=== PATIENT | male | born 1965 | race Caucasian/White ===

== ENCOUNTER → 2024-09-21 15:50 | Outpatient (CLI) | payer OTHER, SELFPAY | PROVIDERS: PCP Family Medicine; Visit Provider Urology | DX: R35.1 Nocturia (principal); N40.1 Benign prostatic hyperplasia with lower urinary tract symptoms | CPT/HCPCS: 51798; 87086; 99213 ==

== ENCOUNTER → 2024-11-24 19:01 | Outpatient (CLI) | payer OTHER, SELFPAY ==
--- NOTE | 2024-11-24 19:02 | DI.MRI.S_ITS ---
PROCEDURE: MR FOOT RT WO CON INDICATIONS: PAIN IN RT FOOT TECHNIQUE: Multiphasic, multisequence MRI of the forefoot was performed, without intravenous contrast administration. 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 FINDINGS: Image quality: Excellent. Bones and joints: Alignment of midfoot and forefoot is anatomic. Zueq-xn-almbxhtu midfoot and forefoot joint osteoarthritic changes are seen most notably involving 1st MTP joint and 1st interphalangeal joint with significant joint space narrowing, subchondral sclerosis and prominent dorsal marginal osteophyte formation. Mild marrow edema is seen involving 1st metatarsal head and adjacent 1st metatarsal base without discrete fracture line. Marrow edema is also seen involving lateral sesamoid bone of 1st metatarsal head without discrete fracture line. Mild marrow edema is noted involving 4th proximal metatarsal shaft with very subtle cortical irregularity at the area of edema concerning for incomplete stress fracture versus stress related changes. No other area of abnormal marrow signal is seen. No displaced fracture or dislocation. Soft tissues: The visualized plantar foot muscles demonstrate normal signal and bulk. Visualized flexor and extensor tendons appear intact, without tenosynovitis. The distal insertions of the peroneus brevis and longus tendons appear intact. Low-grade sprain involving principal Lisfranc ligament is seen. No soft tissue ganglion cysts or bursal fluid collections. Sagittal images demonstrate no definite plantar plate tear in 2nd through 5th toes. There is signal abnormality involving lateral sesamoid phalangeal ligament of 1st MTP joint near its sesamoidal insertion. IMPRESSION: 1. Almp-rr-rlriwsyh midfoot and forefoot joint osteoarthritis most notably involving 1st MTP joint with features concerning for hallux limitus. 2. Edema within lateral sesamoid bone of 1st mem TP joint concerning for sesamoiditis. Suggestion of low-grade partial-thickness tear involving lateral sesamoid phalangeal ligament of 1st MTP joint and may represent low-grade turf toe injury. 3. Marrow edema also seen involving proximal shaft of 4th metatarsal bone without discrete fracture line concerning for stress related changes. Incomplete stress fracture cannot be entirely excluded. Clinical correlation and follow-up is recommended. 4. Suggestion of low-grade sprain involving principal Lisfranc ligament. No full-thickness ligament rupture. 5. Extensor and flexor tendons are intact. Dictated by: Kevyn Dave M.D. on 11/25/2024 at 10:22 Approved by: Kevyn Dave M.D. on 11/25/2024 at 10:36
== END ==
PROVIDERS: PCP Family Medicine; Referring Provider Podiatrist; Visit Provider Podiatrist
DX: M19.071 Primary osteoarthritis, right ankle and foot (principal); M79.671 Pain in right foot; R60.0 Localized edema
CPT/HCPCS: 73718

== ENCOUNTER 2024-11-26 01:37 | Emergency (ER) | payer OTHER, SELFPAY ==
[2024-11-26] VITALS (7 sets, daily range): BP systolic 154–181; BP diastolic 113–125; PULSE 64–71; RESP 14–18; TEMP 36.3; O2SAT 93–95; BMI 34.0
--- NOTE | 2024-11-26 01:55 | EKG_ITS ---
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
--- NOTE | 2024-11-26 02:14 | DI.RAD.S_ITS ---
PROCEDURE: XR CHEST 1V INDICATIONS: chest pain TECHNIQUE: One view of the chest was acquired. COMPARISON: None. FINDINGS: Surgical changes and devices: None. Lungs and pleura: Lungs are clear. No pleural effusions or pneumothorax. Mediastinum: Mediastinal contours appear normal. Heart size is normal. Bones and chest wall: No suspicious bony lesions. Overlying soft tissues appear unremarkable. IMPRESSION: No acute cardiopulmonary abnormality is seen. Findings are concordant with preliminary interpretation provided by [facility]. Dictated by: Elan Chowdhury M.D. on 11/26/2024 at 9:38 Approved by: Elan Chowdhury M.D. on 11/26/2024 at 9:38
[2024-11-26 02:22] LABS: Add Manual Diff / Slide Review NO; Basophils Absolute Auto 0 /uL (0-100); Basophils Percent Auto 0.7 % (0-2); Eosinophils Absolute Auto 100 /uL (0-450); Hematocrit 55.9 % (41-53); Hemoglobin 18.6 g/dL (13.5-17.5); Lymphocytes Absolute Auto 1400 /uL (1100-4500); Lymphocytes Percent Auto 23.7 % (25-40); Mean Corpuscular HGB Conc 33.3 % (30-36); Mean Corpuscular Hemoglobin 27.9 PG (26-34); Mean Corpuscular Volume 83.8 fL (80-100); Monocytes Absolute Auto 500 /uL (0-900); Monocytes Percent Auto 7.9 % (3-14); Neutrophils Absolute Auto 3900 /uL (1500-7000); Neutrophils Percent Auto 65.7 % (50-75); Platelet Count 182 X10^3/uL (150-400); Red Blood Cell Count 6.67 X10^6/uL (4.5-5.9); Red Cell Distribution Width 14.3 % (11.6-14.8)
[2024-11-26 02:29] LABS: INR 1.1 (0.9-1.3); Prothrombin Time 12.3 SECONDS (9.4-12.5)
[2024-11-26 02:32] LABS: PTT Partial Thromboplastin Tim 43 SECONDS (25.1-36.5)
[2024-11-26 02:33] LABS: Alanine Aminotransferase 68 IU/L (<50); Albumin 4.8 g/dL (3.5-5.0); Albumin Globulin Ratio 1.5 (1.0-2.8); Alkaline Phosphatase 65 U/L (38-126); Aspartate Aminotransferase 42 IU/L (17-59); BUN Creatinine Ratio 19.5 (6-22); Bilirubin Total 1.1 mg/dL (0.2-1.3); Blood Urea Nitrogen 23 mg/dL (9-20); Calcium 9.3 mg/dL (8.4-10.2); Carbon Dioxide 23 mmol/L (22-32); Chloride 102 mmol/L (98-107); Creatine Kinase 104 U/L (55-170); Estimated Glomerular Filt Rate > 60 mL/min (>60); Globulin 3.3 g/dL (1.7-4.1); Glucose 92 mg/dL (70-100); HEMOLYSIS < 15 (0-50); Lipase 62 U/L (23-300); Magnesium 1.9 mg/dL (1.6-2.3); Potassium 3.6 mmol/L (3.4-5.1); Sodium 137 mmol/L (137-145); Total Protein 8.1 g/dL (6.3-8.2)
--- NOTE | 2024-11-26 02:39 | ED.GENADULT ---
HPI - General Adult General Chief complaint: Hypertension Stated complaint: High blood pressure Time Seen by Provider: 11/26/24 02:39 Source: patient, RN notes reviewed and old records reviewed Mode of arrival: Ambulatory Limitations: no limitations History of Present Illness HPI narrative: 59-year-old male with hypertension was on losartan until month or 2 ago medications were stopped mucous patient was trying to be more natural in his diet and was getting low blood pressure with his losartan and tamsulosin in conjunction. Patient recently had his losartan restarted in has been taking 50 mg a day but notes his blood pressure has been elevated recently tonight has a little bit of sinus pressure checked his blood pressure and noted he was 180s/110s. Patient denies any active chest pain, no shortness of breath, no nausea or vomiting, no other GI or urinary symptoms. No new swelling in extremities. Patient has a fall medications currently. Did take 100 mg of losartan earlier. Patient also took additional hydrochlorothiazide this evening but does not take that normally. Denies any drug allergies. No tobacco. Related Data Previous Rx's Medication Instructions Recorded trazodone 50 mg tablet 50 mg PO BEDTIME PRN insomnia #30 10/28/24 tabs semaglutide 2 mg/dose (8 mg/3 mL) 2 mg (0.75 mL) SUBCUT QWEEK #3 mL 11/17/24 subcutaneous pen injector losartan 50 mg tablet 50 mg PO DAILY #30 tabs 11/25/24 Allergies Allergy/AdvReac Type Severity Reaction Status Date / Time No Known Drug Allergies Allergy Unverified 11/12/24 08:10 Review of Systems Review of Systems ROS Unobtainable: All systems reviewed & are unremarkable except as noted in HPI and below Patient History Surgical History Raymond teeth removed (08/25/04) Hx of hernia repair Family History Mother Hyperlipidemia Father Hyperlipidemia Social History marital status: number of children: 4 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 RESPIRATORY: Breath sounds equal bilaterally, no wheezes rales or rhonchi. ABDOMEN: Soft, nontender. Normoactive bowel sounds all 4 quadrants. No guarding or rebound, rigidity, no mass : No CVA tenderness EXTREMITIES: Normal range of motion, no edema. Neurovascularly intact NEUROLOGICAL: Cranial nerves II through XII grossly intact. Moving all extremities SKIN: Warm, dry, no petechiae, no rashes or lesions. Initial Vital Signs Initial Vital Signs: Vital Signs Temperature 97.4 F L 11/26/24 01:40 Pulse Rate 67 11/26/24 01:40 Respiratory Rate 16 11/26/24 01:40 Blood Pressure 181/125 H 11/26/24 01:40 Pulse Oximetry 95 11/26/24 01:40 Oxygen Delivery Method Room Air 11/26/24 01:40 Course Orders Ordered: ED Orders 11/26/24 01:47 EKG-12 Lead Stat 11/26/24 02:14 XR chest 1V Stat Complete Blood Count AUTO DIFF Stat Comprehensive Metabolic Panel Stat Lipase Stat Magnesium Stat NT-proBNP (BNP-Adult 18+) Stat PTT Partial Thromboplastin Pio Stat Prothrombin Time INR Stat Troponin & CK Cardiac Panel Stat EKG-12 Lead Stat Discontinued Medications Acetaminophen (Acetaminophen 325 Mg Tablet) 975 mg PO NOW ONE Stop: 11/26/24 02:57 Last Admin: 11/26/24 03:05 Dose: 975 mg Documented By: AMANDO Amlodipine Besylate (Amlodipine 5 Mg Tablet) 5 mg PO NOW ONE Stop: 11/26/24 02:57 Last Admin: 11/26/24 03:05 Dose: 5 mg Documented By: AMANDO Aspirin (Aspirin 81 Mg Chew Tab) 324 mg PO NOW ONE Stop: 11/26/24 02:15 Vital Signs Vital signs: Vital Signs - 8 hr 11/26/24 01:40 11/26/24 02:13 11/26/24 02:13 Temperature 97.4 F L Pulse Rate 67 70 Respiratory Rate 16 14 Blood Pressure 181/125 H 154/114 H Pulse Oximetry 95 95 Oxygen Delivery Method Room Air Room Air 11/26/24 02:30 11/26/24 02:32 11/26/24 02:32 Temperature Pulse Rate 70 71 Respiratory Rate 18 18 Blood Pressure 173/113 H Pulse Oximetry 94 95 Oxygen Delivery Method Room Air Room Air 11/26/24 03:00 11/26/24 03:00 11/26/24 03:11 Temperature Pulse Rate 64 68 Respiratory Rate 18 18 Blood Pressure 163/116 H Pulse Oximetry 95 93 Oxygen Delivery Method Room Air Room Air 11/26/24 03:20 Temperature Pulse Rate Respiratory Rate Blood Pressure 171/119 H Pulse Oximetry Oxygen Delivery Method Medical Decision Making Lab Data 11/26/24 02:14 11/26/24 02:14 Labs: Lab Results 11/26/24 Range/Units 02:14 WBC 6.0 (4.5-11.0) X10^3/uL RBC 6.67 H (4.5-5.9) X10^6/uL Hgb 18.6 H (13.5-17.5) g/dL Hct 55.9 H (41-53) % MCV 83.8 (80-100) fL MCH 27.9 (26-34) PG MCHC 33.3 (30-36) % RDW 14.3 (11.6-14.8) % Plt Count 182 (150-400) X10^3/uL Neut % (Auto) 65.7 (50-75) % Lymph % (Auto) 23.7 L (25-40) % [place] % (Auto) 7.9 (3-14) % Eos % (Auto) 2.0 (2-4) % Baso % (Auto) 0.7 (0-2) % Neut # (Auto) 3900 (6348-9976) /uL Lymph # (Auto) 1400 (8938-4370) /uL [place] # (Auto) 500 (0-900) /uL Eos # (Auto) 100 (0-450) /uL Baso # (Auto) 0 (0-100) /uL PT 12.3 (9.4-12.5) SECONDS INR 1.1 (0.9-1.3) APTT 43 H (25.1-36.5) SECONDS Sodium 137 (137-145) mmol/L Potassium 3.6 (3.4-5.1) mmol/L Chloride 102 (98-107) mmol/L Carbon Dioxide 23 (22-32) mmol/L BUN 23 H (9-20) mg/dL Creatinine 1.18 (0.66-1.25) mg/dL Estimated GFR > 60 (>60) mL/min BUN/Creatinine Ratio 19.5 (6-22) Glucose 92 (70-100) mg/dL Calcium 9.3 (8.4-10.2) mg/dL Magnesium 1.9 (1.6-2.3) mg/dL Total Bilirubin 1.1 (0.2-1.3) mg/dL AST 42 (17-59) IU/L ALT 68 H (<50) IU/L Alkaline Phosphatase 65 (38-126) U/L Total Creatine Kinase 104 (55-170) U/L Troponin I < 0.012 (0.01-0.034) ng/mL NT-Pro-B Natriuret Pep < 20 (<125) pg/mL Total Protein 8.1 (6.3-8.2) g/dL Albumin 4.8 (3.5-5.0) g/dL Globulin 3.3 (1.7-4.1) g/dL Albumin/Globulin Ratio 1.5 (1.0-2.8) Lipase 62 (23-300) U/L ECG Data Attestation: I personally reviewed and interpreted this ECG as follows: Prior ECG tracings: not available for review Interpretation: Normal sinus rhythm rate a 68, IA 188 QRS of 90 QTC of 438, no acute ST changes. No priors MDM Narrative Medical decision making narrative: Labs show white count of 6 hemoglobin of 18.6 platelets of 182. INR is 1.1 BUN 23 electrolytes are otherwise appropriate creatinine is 1.18 AST is 68, LFTs are otherwise appropriate. Troponin less than 0.012. BNP less than 20 EKG shows sinus rhythm no priors for comparison. Chest x-ray shows no acute change Discussed with patient we will give low dose of amlodipine here in the department. Patient has a follow-up in the next 12 hours with primary care. Discussed with the patient primary care may choose an alternative agent for long-term blood pressure control. Workup does not show any end-organ damage no active chest pain or shortness of breath patient is felt appropriate for discharge home. Discharge Plan Departure Patient Disposition: Home Clinical Impression: Hypertension Activity Restrictions/Additional Instructions: Follow up with Dr. Balbuena to your appointment later today. Talk with your physician about how to adjust your medications. Please return for new or worsening symptoms. Prescriptions: No Action trazodone 50 mg tablet 50 mg PO BEDTIME PRN (Reason: insomnia) Qty: 30 2RF semaglutide 2 mg/dose (8 mg/3 mL) pen injector 2 mg SUBCUT QWEEK Qty: 3 5RF Rx Instructions: Semaglutide/cyanocobalamine inject subq 2mg/0.5mg per ml weekly losartan 50 mg tablet 50 mg PO DAILY Qty: 30 2RF Rx Instructions: Take 1/2 tab daily for 1 week then increase to 1 tab daily Referrals: Dexter Balbuena MD [Primary Care Provider] - Stand Alone Forms: Patient Portal/API/Survey
[2024-11-26 02:45] LABS: NT-proBNP (BNP-Adult 18+) < 20 pg/mL (<125); Troponin I < 0.012 ng/mL (0.01-0.034)
[2024-11-26] MEDS: AMLODIPINE 5 MG TABLET PO (03:05)
[2024-11-26] MEDS: ACETAMINOPHEN 325 MG TABLET 975 MG PO (03:05)
== END 2024-11-26 03:25 | disposition home or self-care (01) ==
PROVIDERS: Emergency Provider Emergency Medicine; PCP Family Medicine
DX: I10 Essential (primary) hypertension (principal)
CPT/HCPCS: 36415; 71045; 80053; 82550; 83690; 83735; 83880; 84484; 85025; 85610; 85730; 93005; 99284

== ENCOUNTER → 2024-12-01 19:52 | Outpatient (CLI) | payer OTHER, SELFPAY ==
--- NOTE | 2024-12-01 19:55 | DI.RAD.S_ITS ---
PROCEDURE: XR HIP W PEL IF DONE ELADIO MIN 4V INDICATIONS: FA Pain/ Bursitis TECHNIQUE: AP pelvis with lateral view(s) of the both hip(s). COMPARISON: None. FINDINGS: Bones: There are no osseous abnormalities. SI and hip joints: Mild degeneration both SI and hip joints appreciated. Moderate L4-5 L5-S1 degenerative disc disease. Soft tissues: There is an 8 mm soft tissue calcification adjacent to the left greater trochanter. IMPRESSION: Mild degeneration Dictated by: Omar Dia M.D. on 12/02/2024 at 12:48 Approved by: Omar Dia M.D. on 12/02/2024 at 12:50
== END ==
PROVIDERS: PCP Family Medicine; Referring Provider Chiropractor; Visit Provider Chiropractor
DX: M16.0 Bilateral primary osteoarthritis of hip (principal); M51.369 Other intervertebral disc degeneration, lumbar region without mention of lumbar back pain or lower extremity pain; M51.379 Other intervertebral disc degeneration, lumbosacral region without mention of lumbar back pain or lower extremity pain; M25.559 Pain in unspecified hip
CPT/HCPCS: 73522

== ENCOUNTER → 2025-01-13 07:00 | Outpatient (CLI) | payer OTHER, SELFPAY ==
[2025-01-13 08:35] LABS: Prostate Specific Antigen 2.29 ng/mL (0.10-4.00)
[2025-01-13 08:37] LABS: Testosterone 250 ng/dL (71.8-623)
[2025-01-13 08:38] LABS: Estradiol, Total 24.4 pg/mL
== END ==
PROVIDERS: PCP Family Medicine; Referring Provider Urology; Visit Provider Urology
DX: R79.89 Other specified abnormal findings of blood chemistry (principal); R97.20 Elevated prostate specific antigen [PSA]
CPT/HCPCS: 36415; 82670; 84153; 84403; 85014

== ENCOUNTER → 2025-03-19 06:22 | Outpatient (CLI) | payer OTHER, SELFPAY ==
--- NOTE | 2025-03-19 | DI.MRI.S_ITS ---
PROCEDURE: MR HIP LT WO CON INDICATIONS: Right hip pain TECHNIQUE: Noncontrast coronal T1 spin echo and STIR through the bony pelvis. Coronal and axial T2 fast spin echo with fat saturation, sagittal T1 spin echo, and oblique axial T2 fast spin echo with fat saturation through the hip. COMPARISON: None. FINDINGS: Image quality: Excellent. Bones and joints: Periarticular osteophyte formation at the left hip joint. Bone marrow of the pelvic ring and proximal femurs show normal signal throughout. No intraosseous lesions or fractures. No avascular necrosis of the femoral heads. The visualized lower lumbar spine appears normally aligned. Tendons and ligaments: There is moderate grade tearing of the gluteus minimus tendon the femoral insertion site extending to the musculotendinous junction. Low-grade tearing of the gluteus medius tendon at the femoral insertion site. The nearby proximal iliotibial band also appears intact. The iliopsoas tendon appears intact, without adjacent bursal fluid collections or evidence for impingement syndrome. The origin of the hamstring tendon is intact at the ischial tuberosity, as well as the associated sacrotuberous ligament. The straight and reflected heads of the rectus femoris muscle origin appear intact, as well as the conjoint tendon. The ligamentum teres appears intact where visualized. Labrum and cartilage: There is diffuse undercutting of the left hip labrum. Mild left hip joint articular cartilage loss is present. The alpha angle of the femur is within normal limits at less than 55 degrees. Soft tissues: Visualized muscles demonstrate normal bulk and internal signal. Quadratus femoris muscle demonstrates no internal edema to suggest ischiofemoral impingement. The proximal sciatic neurovascular bundle appears normal adjacent to the hamstring tendons. No free pelvic fluid. Bladder wall thickness is normal. Prostate is enlarged measuring 64 mm transverse. IMPRESSION: 1. Partial-thickness tearing of the left gluteus medius and minimus tendons. 2. Left hip osteoarthritis associated with articular cartilage loss and labral tearing. 3. Prostate enlargement. Dictated by: Ortega Dyer M.D. on 03/21/2025 at 11:41 Approved by: Ortega Dyer M.D. on 03/21/2025 at 11:45
== END ==
LOC: MRI 06:22
PROVIDERS: Family Provider Family Medicine; PCP Family Medicine; Referring Provider Orthopaedic Surgery; Visit Provider Orthopaedic Surgery
DX: S76.012A Strain of muscle, fascia and tendon of left hip, initial encounter (principal); M16.12 Unilateral primary osteoarthritis, left hip; N40.0 Benign prostatic hyperplasia without lower urinary tract symptoms; M25.552 Pain in left hip
CPT/HCPCS: 73721

== ENCOUNTER 2025-06-21 07:30 | Outpatient (RCR) | payer OTHER, SELFPAY ==
--- NOTE | 2025-03-24 18:49 | PT.OPPOC ---
Addendum entered and electronically signed by Adelita Hernandez, PT 03/24/25 18:53: POC faxed Original Note: Physical, Occupational & Speech Therapy At [facility] Current Diagnoses Calcific tendinitis, left thigh (03/24/25) Trochanteric bursitis, left hip (03/24/25) Strain of muscle, fascia and tendon of left hip, initial encounter (03/24/25) Visit Care Team Role Provider Type Dexter Balbuena MD Family Provider Physician Primary Care Provider Specialty: Family Practice Obstetrics Address: [address] [place] [address], [id number] Email: [email or web address] Ene Kearns MD Attending Provider Physician Referring Provider Specialty: Orthopedics Orthopedic Surgery Address: [address] [place] [address], [address] Email: [email or web address] Plan Of Care PT OP: Lower Back/Extremity Start: 03/24/25 08:15 Freq: Status: Active Protocol: Document 03/24/25 17:05 [facility] (Rec: 03/24/25 18:49 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 Condition Okay if keeps moving, but can't lay on R side because feels it pulling and when on L side feels it down to ankle. When it first started, stopped going to the gym and that didn't help. Returned and did high reps and low weight and didn't help. He had a cortizone shot and it helped fo ra day. THat ngiht sore next day with gym , walks, bikes so now avoiding it some. 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 Lower left side of back is tight. Gets massages and goes to chiro. Feels better after chiro. 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 Aggravation: up/down stairs, sleep, working out. tore peroneal tendons and had to have surgery on L side a few years ago. Can feel like a numb burn down L side of leg. Treatment Goals Patient/Caregiver get back to working out (gym, hiking, biking), sleep Goals Patient Questionnaires Lower Extremity Functional Scale LEFS Score 62/80 OP Gait Assessment Comments Gait Comments Dec b hip ext, supination L ankle, dec push off L Posture Evaluation Gilbert Postural Classification System Gilbert Postural Posterior/Anterior Classifications Lumbar Protective 0 Mechanism Left AP Lumbar Protective 0 Mechanism Right AP Lumbar Protective 0 Mechanism Left PA Lumbar Protective 0 Mechanism Right PA Comments Posture Comments L iliac higher, equal greater trochanter height, R foot toes out>L, SB L, L trunk rotation , L IR femur, ER tibia Lumbar Spine Range of Motion Lumbar Spine Active Percentage Flexion 90 Extension 80 Rotation Left 70 Rotation Right 60 Lateral Flexion Left 80 Lateral Flexion 80 Right Special Tests Lumbar Spine Special Tests Bharathi Test Results R iliacus and tLF tightness; L quad SLR Test Results L 58 deg; R 83 deg Slump Test Results mild more tightness ext sit and slump L Hip Strength Hip Manual Muscle Testing Right Flexion (L2) 4- Good- Extension (S1) 4- Good- Abduction 4 Good Adduction 4 Good External Rotation 5 Normal Internal Rotation 5 Normal Left Flexion (L2) 3+ Fair+ Extension (S1) 4- Good- Abduction 3+ Fair+ Adduction 3+ Fair+ External Rotation 5 Normal Internal Rotation 4- Good- Comments pain post hip w/flex and IR Knee Strength Knee Manual Muscle Testing Right Flexion (S2) 5 Normal Extension (L3) 5 Normal Left Flexion (S2) 4 Good Extension (L3) 5 Normal Ankle/Foot Strength Ankle and Foot Manual Muscle Testing Right Dorsiflexion (L4) 5 Normal Left Dorsiflexion (L4) 5 Normal Therapeutic Exercises Standing Exercises stretch Standing Exercise 1. HS L 2. hip flexor w/knee on chair Name Manual Therapy Treatment Consent Patient gave verbal Yes consent for manual treatment Soft Tissue Mobilization ITB Body Location L cupping Comments w/IR/ER glutes Body Location L piriformis Intensity/Depth Moderate Body Position Prone Comments w/IR/ER Joint Mobilizations innominate Comments caudal L w/LTR and L IR c/r sacrum Joint caudal L LTR prone hip Joint L hip on axis IR c/r Self-Care/Home Management Treatment Education Other Education 15 min: edu re: dermatomes and how pain can be caused from back also. Edu that pain down the leg sounds more neural and positive SLR. edu that pelvis is off and HS and hip flexor tightness likely affecting it. Physical Therapy Assessment Rehab Potential Rehabilitation Good Potential Evaluation Complexity Number of Personal 3 or More Factors/ Comorbidities Number of Body 4 or More Systems Impaired Clinical Evolving Presentation at Evaluation Impairments Impairments Activity Tolerance,Balance,Functional Activities, Functional Mobility,Gait,Pain,Posture,ROM,Soft Tissue Mobility,Strength,Transfers Goals sleep Nursing Home Goal (LTG) Pt will be able to sleep on sides w/o hip or leg pain LTG Duration 06/22 activity Short Term Goal (STG Pt will be able to do stairs w/o inc pain ) STG Duration 05/09 [place] Operator Goal (LTG) Pt will be able to return to hiking, gym workouts without increased pain. LTG Duration 06/22 strength Short Term Goal (STG Pt will be indep w/HEP for self relief of pain ) STG Duration 04/25 [place] Operator Goal (LTG) Pt will score at least 3/5 BLE LPM and at least 4+/5 on all BLE MMT to show improved strength so pt has dec pain w/activities. LTG Duration 06/22 Assessment Summary Assessment Pt presents w/L hip pain starting in Sep w/MRI showing L hip OA and partial glute med and minimus tears with significant weakness of L hip and dec ROM along w/ innominate dysfunction along w/positive L SLR. It is possible pain is also related to this neural tension. He would benefit from skilled PT to return to ability to sleep through the night, work without pain and work out. Physical Therapy Plan Frequency and Duration Frequency of 2x/Week Treatment Duration of 12 treatment (weeks) Plan of Care Start 03/24/25 Date Plan of Care End 06/22/25 Date Therapeutic Interventions Therapeutic Balance Training,Gait Training,Home Exercise Program, Interventions Joint Mobilizations,Manual Therapy,Neuromuscular Re- education,Patient/Caregiver Education,Self-Care/Home Management,Soft Tissue Mobilization,Taping,Therapeutic Activities,Therapeutic Exercises Modalities Cold Pack/Ice Massage,Electric Stimulation,Hot Packs Next Visit Focus/Plan Next Note Type Treatment Note Next Visit Plan give core exercises, squats, gentle hip strengthening, manual to innominate, lumbar and hips Plan of Care Dates Plan of Care Start Date 03/24/25 Plan of Care End Date 06/22/25 Electronically Signed by: Adelita Hernandez, PT 03/24/25 8011 If you are in agreement with this Plan of Care, please return a signed and dated copy. I have reviewed this Plan of Care and certify that the skilled therapy services above are required to meet the patient?s needs. Physician Signature Date Printed Name and Credentials Clinical Instructor Signature Printed Name and Credentials
--- NOTE | 2025-03-24 18:52 | PT.OTN ---
Current Diagnoses Calcific tendinitis, left thigh (03/24/25) Trochanteric bursitis, left hip (03/24/25) Strain of muscle, fascia and tendon of left hip, initial encounter (03/24/25) Physical Therapy Treatment Note PT OP: Lower Back/Extremity Start: 03/24/25 08:15 Freq: Status: Active Protocol: Document 03/24/25 17:05 [facility] (Rec: 03/24/25 18:49 [facility] [id number]) Out-Patient Physical Therapy Visit Information Visit Information Visit Type Initial Evaluation Visit Start Time 17:05 Visit Stop Time 17:55 Visit Number 1 Number of BUTTON TUFTING MACHINE OPERATOR Visits 0 Current Condition History of Current Condition Onset Date Sep Current Complaints L hip and pain lat leg pain History of Current Pt reports thinks injury was gym related back in Sep. Condition Okay if keeps moving, but can't lay on R side because feels it pulling and when on L side feels it down to ankle. When it first started, stopped going to the gym and that didn't help. Returned and did high reps and low weight and didn't help. He had a cortizone shot and it helped fo day. THat ngiht sore next day with gym , walks, bikes so now avoiding it some. 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 Lower left side of back is tight. Gets massages and goes to chiro. Feels better after chiro. 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 Aggravation: up/down stairs, sleep, working out. tore peroneal tendons and had to have surgery on L side a few years ago. Can feel like a numb burn down L side of leg. Treatment Goals Patient/Caregiver get back to working out (gym, hiking, biking), sleep Goals Patient Questionnaires Lower Extremity Functional Scale LEFS Score 62/80 OP Gait Assessment Comments Gait Comments Dec b hip ext, supination L ankle, dec push off L Posture Evaluation Gilbert Postural Classification System Gilbert Postural Posterior/Anterior Classifications Lumbar Protective 0 Mechanism Left AP Lumbar Protective 0 Mechanism Right AP Lumbar Protective 0 Mechanism Left PA Lumbar Protective 0 Mechanism Right PA Comments Posture Comments L iliac higher, equal greater trochanter height, R foot toes out>L, SB L, L trunk rotation , L IR femur, ER tibia Lumbar Spine Range of Motion Lumbar Spine Active Percentage Flexion 90 Extension 80 Rotation Left 70 Rotation Right 60 Lateral Flexion Left 80 Lateral Flexion 80 Right Special Tests Lumbar Spine Special Tests Bharathi Test Results R iliacus and tLF tightness; L quad SLR Test Results L 58 deg; R 83 deg Slump Test Results mild more tightness ext sit and slump L Hip Strength Hip Manual Muscle Testing Right Flexion (L2) 4- Good- Extension (S1) 4- Good- Abduction 4 Good Adduction 4 Good External Rotation 5 Normal Internal Rotation 5 Normal Left Flexion (L2) 3+ Fair+ Extension (S1) 4- Good- Abduction 3+ Fair+ Adduction 3+ Fair+ External Rotation 5 Normal Internal Rotation 4- Good- Comments pain post hip w/flex and IR Knee Strength Knee Manual Muscle Testing Right Flexion (S2) 5 Normal Extension (L3) 5 Normal Left Flexion (S2) 4 Good Extension (L3) 5 Normal Ankle/Foot Strength Ankle and Foot Manual Muscle Testing Right Dorsiflexion (L4) 5 Normal Left Dorsiflexion (L4) 5 Normal Therapeutic Exercises Standing Exercises stretch Standing Exercise 1. HS L 2. hip flexor w/knee on chair Name Manual Therapy Treatment Consent Patient gave verbal Yes consent for manual treatment Soft Tissue Mobilization ITB Body Location L cupping Comments w/IR/ER glutes Body Location L piriformis Intensity/Depth Moderate Body Position Prone Comments w/IR/ER Joint Mobilizations innominate Comments caudal L w/LTR and L IR c/r sacrum Joint caudal L LTR prone hip Joint L hip on axis IR c/r Self-Care/Home Management Treatment Education Other Education 15 min: edu re: dermatomes and how pain can be caused from back also. Edu that pain down the leg sounds more neural and positive SLR. edu that pelvis is off and HS and hip flexor tightness likely affecting it. Physical Therapy Assessment Rehab Potential Rehabilitation Good Potential Evaluation Complexity Number of Personal 3 or More Factors/ Comorbidities Number of Body 4 or More Systems Impaired Clinical Evolving Presentation at Evaluation Impairments Impairments Activity Tolerance,Balance,Functional Activities, Functional Mobility,Gait,Pain,Posture,ROM,Soft Tissue Mobility,Strength,Transfers Goals sleep Retread Mold Operator Goal (LTG) Pt will be able to sleep on sides w/o hip or leg pain LTG Duration 06/22 activity Short Term Goal (STG Pt will be able to do stairs w/o inc pain ) STG Duration 05/09 [facility] Goal (LTG) Pt will be able to return to hiking, gym workouts without increased pain. LTG Duration 06/22 strength Short Term Goal (STG Pt will be indep w/HEP for self relief of pain ) STG Duration 04/25 [facility] Goal (LTG) Pt will score at least 3/5 BLE LPM and at least 4+/5 on all BLE MMT to show improved strength so pt has dec pain w/activities. LTG Duration 06/22 Assessment Summary Assessment Pt presents w/L hip pain starting in Sep w/MRI showing L hip OA and partial glute med and minimus tears with significant weakness of L hip and dec ROM along w/ innominate dysfunction along w/positive L SLR. It is possible pain is also related to this neural tension. He would benefit from skilled PT to return to ability to sleep through the night, work without pain and work out. Physical Therapy Plan Frequency and Duration Frequency of 2x/Week Treatment Duration of 12 treatment (weeks) Plan of Care Start 03/24/25 Date Plan of Care End 06/22/25 Date Therapeutic Interventions Therapeutic Balance Training,Gait Training,Home Exercise Program, Interventions Joint Mobilizations,Manual Therapy,Neuromuscular Re- education,Patient/Caregiver Education,Self-Care/Home Management,Soft Tissue Mobilization,Taping,Therapeutic Activities,Therapeutic Exercises Modalities Cold Pack/Ice Massage,Electric Stimulation,Hot Packs Next Visit Focus/Plan Next Note Type Treatment Note Next Visit Plan give core exercises, squats, gentle hip strengthening, manual to innominate, lumbar and hips
--- NOTE | 2025-04-04 09:06 | PT.OTN ---
Current Diagnoses Calcific tendinitis, left thigh (04/04/25) Trochanteric bursitis, left hip (04/04/25) Strain of muscle, fascia and tendon of left hip, initial encounter (04/04/25) Physical Therapy Treatment Note PT OP: Lower Back/Lower Extremity Start: 03/24/25 08:15 Freq: Status: Active Protocol: Document 04/04/25 07:32 [facility] (Rec: 04/04/25 09:06 [facility] [id number]) Out-Patient Physical Therapy Visit Information Visit Information Visit Type Treatment Note Visit Start Time 07:33 Visit Stop Time 08:15 Visit Number 2 Number of ORTHOPEDIC PHYSICIAN Visits 0 Progress Note Due 04/23/25 Therapeutic Exercises Standing Exercises clamshell Standing Exercise foot on wall Name Side bilateral Equipment Used L3 Reps/Minutes 15 ea step ups Side left Reps/Minutes tried lat and fwd and painful hip hike Side bilateral Equipment Used step Reps/Minutes 15 gait at wall Standing Exercise flat foot Name Side left Reps/Minutes 10 sec x8 Comments inc time for set up Other Exercises sidesit Other Exercise Name attempt for switch side sit stretch Other Exercise Name half kneel hip flexor stretch Side bilateral Reps/Minutes 30 sec ea Comments inc time working on neutral spine Manual Therapy Treatment Consent Patient gave verbal Yes consent for manual treatment Soft Tissue Mobilization back Body Location cupping by L SI ITB Body Location L cupping Comments w/IR/ER Joint Mobilizations innominate Comments caudal L w/LTR and L IR c/r & percussion; ext s/l c/r L w/manual facilitation at end range sacrum Joint caudal and UPA L LTR prone and percussion Physical Therapy Assessment Goals sleep Database Development Project Manager Goal (LTG) Pt will be able to sleep on sides w/o hip or leg pain LTG Duration 06/22 activity Short Term Goal (STG Pt will be able to do stairs w/o inc pain ) STG Duration 05/09 [facility] Goal (LTG) Pt will be able to return to hiking, gym workouts without increased pain. LTG Duration 06/22 strength Short Term Goal (STG Pt will be indep w/HEP for self relief of pain ) STG Duration 04/25 Database Development Project Manager Goal (LTG) Pt will score at least 3/5 BLE LPM and at least 4+/5 on all BLE MMT to show improved strength so pt has dec pain w/activities. LTG Duration 06/22 Assessment Summary Assessment Pt had more feeling of looseness and was able to put on shoes with greater ease and go up stairs with less pain. did well with exercises but struggled with step ups and trying to do side sit to kneel when LLE in IR Physical Therapy Plan Frequency and Duration Frequency of 2x/Week Treatment Duration of 12 treatment (weeks) Plan of Care Start 03/24/25 Date Plan of Care End 06/22/25 Date Next Visit Focus/Plan Next Note Type Treatment Note Next Visit Plan give core exercises, squats, gentle hip strengthening, manual to innominate, lumbar and hips
--- NOTE | 2025-04-11 08:19 | PT.OTN ---
Current Diagnoses Calcific tendinitis, left thigh (04/11/25) Trochanteric bursitis, left hip (04/11/25) Strain of muscle, fascia and tendon of left hip, initial encounter (04/11/25) Physical Therapy Treatment Note PT OP: Lower Back/Lower Extremity Start: 03/24/25 08:15 Freq: Status: Active Protocol: Document 04/11/25 07:31 [facility] (Rec: 04/11/25 08:18 [facility] [id number]) Out-Patient Physical Therapy Visit Information Visit Information Visit Type Treatment Note Visit Start Time 07:33 Visit Stop Time 08:13 Visit Number 3 Number of RIM FIRE PRIMING OPERATOR Visits 0 Progress Note Due 04/23/25 OP-PT Subjective Patient Comments Patient Comments Pt reports he had an injection in his foot for a mortons neuroma about 6 months ago and did 2 hard days at the gym and foot was aggrevated. His first 2 steps up the stairs are still hard. Back is still sore. he did HEP. Therapeutic Exercises Supine Exercises stretches Supine Exercise Name 1. knee to opp chest 2. figure 4 3.spiderman cross leg cross body Side bilateral Reps/Minutes 1&2. 30 sec ea 3. Sitting Exercises roll out Sitting Exercise glutes, hs and quads Name Equipment Used foam roll Reps/Minutes 3 min stretches Sitting Exercise 1. piriformis 2. figure 4 Name Side bilateral Reps/Minutes 20 sec ea Standing Exercises clamshell Standing Exercise foot on wall Name Side bilateral Equipment Used L3 Reps/Minutes 10 ea hip hike Side bilateral Equipment Used step Reps/Minutes 10 Comments cues core engagement gait at wall Standing Exercise flat foot Name Side left Reps/Minutes 10 sec x2 Manual Therapy Treatment Consent Patient gave verbal Yes consent for manual treatment Soft Tissue Mobilization back Body Location QL and ES Mobilization Type Rolling Intensity/Depth Moderate Body Position Sidelying Joint Mobilizations lumbar Comments distraction L5-S1, L4-5; transverse glide L5 R c/r innominate Comments add c/r s/l L hip Comments hip add c/r s/l Physical Therapy Assessment Goals sleep Residential Goal (LTG) Pt will be able to sleep on sides w/o hip or leg pain LTG Duration 06/22 activity Short Term Goal (STG Pt will be able to do stairs w/o inc pain ) STG Duration 05/09 Psychiatry Teacher Goal (LTG) Pt will be able to return to hiking, gym workouts without increased pain. LTG Duration 06/22 strength Short Term Goal (STG Pt will be indep w/HEP for self relief of pain ) STG Duration 04/25 Residential Goal (LTG) Pt will score at least 3/5 BLE LPM and at least 4+/5 on all BLE MMT to show improved strength so pt has dec pain w/activities. LTG Duration 06/22 Assessment Summary Assessment Pt felt significant stretch w/ all stretching exercises and was encouraged to continue with this to help with mobility of hips. he did well with performance of HEP exercises w/o much cues needed. Denied need for HO for stretches. Physical Therapy Plan Frequency and Duration Frequency of 2x/Week Treatment Duration of 12 treatment (weeks) Plan of Care Start 03/24/25 Date Plan of Care End 06/22/25 Date Next Visit Focus/Plan Next Note Type Treatment Note Next Visit Plan give core exercises, squats, gentle hip strengthening, manual to innominate, lumbar and hips
--- NOTE | 2025-04-26 11:36 | PT.OPPN ---
Current Diagnoses Calcific tendinitis, left thigh (04/26/25) Trochanteric bursitis, left hip (04/26/25) Strain of muscle, fascia and tendon of left hip, initial encounter (04/26/25) Physical Therapy Progress Note PT OP: Lower Back/Lower Extremity Start: 03/24/25 08:15 Freq: Status: Active Protocol: Document 04/26/25 07:31 [facility] (Rec: 04/26/25 08:20 [facility] [id number]) Out-Patient Physical Therapy Visit Information Visit Information Visit Type Progress Note Visit Start Time 07:33 Visit Stop Time 08:14 Visit Number 4 Number of TAX SERVICES INTERN Visits 0 Progress Note Due 05/26/25 OP-PT Subjective Patient Comments Patient Comments Last couple days on vacations L foot was tender and hard to walk. Got into doctor when got back, and found an old fx that healed poorly at [place] and had injection. Had fluro injection procedure from hip doc friday and that was sore for a couple days. yesteday woke up and just L knee was sore. went to the gym and did light workout and it went ok. Posture Evaluation Gilbert Postural Classification System Gilbert Postural Posterior/Anterior Classifications Lumbar Protective 2 Mechanism Left AP Lumbar Protective 3 Mechanism Right AP Lumbar Protective 3 Mechanism Left PA Lumbar Protective 2 Mechanism Right PA Hip Strength Hip Manual Muscle Testing Right Flexion (L2) 4 Good Extension (S1) 5 Normal Abduction 4+ Good+ Adduction 4+ Good+ External Rotation 5 Normal Internal Rotation 5 Normal Left Flexion (L2) 4 Good Extension (S1) 5 Normal Abduction 4 Good Adduction 4 Good External Rotation 5 Normal Internal Rotation 5 Normal Knee Strength Knee Manual Muscle Testing Right Flexion (S2) 5 Normal Extension (L3) 5 Normal Left Flexion (S2) 4 Good Extension (L3) 5 Normal Therapeutic Exercises Supine Exercises core Side bilateral Reps/Minutes 30 sec x2 Comments DL w/DF cues Sidelying Exercises open book Side bilateral Reps/Minutes 8 Standing Exercises lat lunge Standing Exercise cues posture Name Side bilateral Reps/Minutes 3 Comments w/plate pull (5lb) sidestep Side bilateral Equipment Used L3 Reps/Minutes 20ft ea Comments cues posture and core Manual Therapy Treatment Consent Patient gave verbal Yes consent for manual treatment Soft Tissue Mobilization back Body Location QL and ES L Mobilization Type Rolling Intensity/Depth Moderate Body Position Sidelying Comments w/rot Joint Mobilizations thoracic Comments transverse glide T11 L c/r; rib 11 internal torsion seated lumbar Comments transverse L3-L5R c/r w/rotation prone and s/l Physical Therapy Assessment Goals sleep Hand Brim Ironer Goal (LTG) Pt will be able to sleep on sides w/o hip or leg pain 04/26-improved since injection LTG Duration 06/22 activity Short Term Goal (STG Pt will be able to do stairs w/o inc pain ) 2-better since injection STG Duration 05/09 [facility] Goal (LTG) Pt will be able to return to hiking, gym workouts without increased pain. 04/26-slowly returning LTG Duration 06/22 strength Short Term Goal (STG Pt will be indep w/HEP for self relief of pain ) STG Duration achieved advancing as able [facility] Goal (LTG) Pt will score at least 3/5 BLE LPM and at least 4+/5 on all BLE MMT to show improved strength so pt has dec pain w/activities. 04/26-improved LTG Duration 06/22 Assessment Summary Assessment Pt had improved rotation w/ manual treatment today with dec symptoms. He is improving with strength, and functional activities. He would benefit from cont PT to work on dec symptoms and increase function. Physical Therapy Plan Frequency and Duration Frequency of 2x/Week Treatment Duration of 12 treatment (weeks) Plan of Care Start 03/24/25 Date Plan of Care End 06/22/25 Date Therapeutic Interventions Therapeutic Balance Training,Gait Training,Home Exercise Program, Interventions Joint Mobilizations,Manual Therapy,Neuromuscular Re- education,Patient/Caregiver Education,Self-Care/Home Management,Soft Tissue Mobilization,Taping,Therapeutic Activities,Therapeutic Exercises Modalities Cold Pack/Ice Massage,Electric Stimulation,Hot Packs Next Visit Focus/Plan Next Note Type Treatment Note Next Visit Plan give core exercises, squats, gentle hip strengthening, manual to innominate, lumbar and hips
--- NOTE | 2025-04-29 14:06 | PT.OTN ---
Current Diagnoses Calcific tendinitis, left thigh (04/26/25) Trochanteric bursitis, left hip (04/26/25) Strain of muscle, fascia and tendon of left hip, initial encounter (04/26/25) Physical Therapy Treatment Note PT OP: Lower Back/Lower Extremity Start: 03/24/25 08:15 Freq: Status: Active Protocol: Document 04/26/25 07:31 [facility] (Rec: 04/26/25 08:20 [facility] [id number]) Out-Patient Physical Therapy Visit Information Visit Information Visit Type Progress Note Visit Start Time 07:33 Visit Stop Time 08:14 Visit Number 4 Number of DROP WIRE HANGER Visits 0 Progress Note Due 05/26/25 OP-PT Subjective Patient Comments Patient Comments Last couple days on vacations L foot was tender and hard to walk. Got into doctor when got back, and found an old fx that healed poorly at [place] and had injection. Had fluro injection procedure from hip doc friday and that was sore for a couple days. yesteday woke up and just L knee was sore. went to the gym and did light workout and it went ok. Posture Evaluation Gilbert Postural Classification System Gilbert Postural Posterior/Anterior Classifications Lumbar Protective 2 Mechanism Left AP Lumbar Protective 3 Mechanism Right AP Lumbar Protective 3 Mechanism Left PA Lumbar Protective 2 Mechanism Right PA Hip Strength Hip Manual Muscle Testing Right Flexion (L2) 4 Good Extension (S1) 5 Normal Abduction 4+ Good+ Adduction 4+ Good+ External Rotation 5 Normal Internal Rotation 5 Normal Left Flexion (L2) 4 Good Extension (S1) 5 Normal Abduction 4 Good Adduction 4 Good External Rotation 5 Normal Internal Rotation 5 Normal Knee Strength Knee Manual Muscle Testing Right Flexion (S2) 5 Normal Extension (L3) 5 Normal Left Flexion (S2) 4 Good Extension (L3) 5 Normal Therapeutic Exercises Supine Exercises core Side bilateral Reps/Minutes 30 sec x2 Comments DL w/DF cues Sidelying Exercises open book Side bilateral Reps/Minutes 8 Standing Exercises lat lunge Standing Exercise cues posture Name Side bilateral Reps/Minutes 3 Comments w/plate pull (5lb) sidestep Side bilateral Equipment Used L3 Reps/Minutes 20ft ea Comments cues posture and core Manual Therapy Treatment Consent Patient gave verbal Yes consent for manual treatment Soft Tissue Mobilization back Body Location QL and ES L Mobilization Type Rolling Intensity/Depth Moderate Body Position Sidelying Comments w/rot Joint Mobilizations thoracic Comments transverse glide T11 L c/r; rib 11 internal torsion seated lumbar Comments transverse L3-L5R c/r w/rotation prone and s/l Physical Therapy Assessment Goals sleep Oil Inspector Goal (LTG) Pt will be able to sleep on sides w/o hip or leg pain 04/26-improved since injection LTG Duration 06/22 activity Short Term Goal (STG Pt will be able to do stairs w/o inc pain ) 2-better since injection STG Duration 05/09 [facility] Goal (LTG) Pt will be able to return to hiking, gym workouts without increased pain. 04/26-slowly returning LTG Duration 06/22 strength Short Term Goal (STG Pt will be indep w/HEP for self relief of pain ) STG Duration achieved advancing as able Oil Inspector Goal (LTG) Pt will score at least 3/5 BLE LPM and at least 4+/5 on all BLE MMT to show improved strength so pt has dec pain w/activities. 04/26-improved LTG Duration 06/22 Assessment Summary Assessment Pt had improved rotation w/ manual treatment today with dec symptoms. He is improving with strength, and functional activities. He would benefit from cont PT to work on dec symptoms and increase function. Physical Therapy Plan Frequency and Duration Frequency of 2x/Week Treatment Duration of 12 treatment (weeks) Plan of Care Start 03/24/25 Date Plan of Care End 06/22/25 Date Therapeutic Interventions Therapeutic Balance Training,Gait Training,Home Exercise Program, Interventions Joint Mobilizations,Manual Therapy,Neuromuscular Re- education,Patient/Caregiver Education,Self-Care/Home Management,Soft Tissue Mobilization,Taping,Therapeutic Activities,Therapeutic Exercises Modalities Cold Pack/Ice Massage,Electric Stimulation,Hot Packs Next Visit Focus/Plan Next Note Type Treatment Note Next Visit Plan give core exercises, squats, gentle hip strengthening, manual to innominate, lumbar and hips
--- NOTE | 2025-04-29 17:22 | PT.OTN ---
Current Diagnoses Calcific tendinitis, left thigh (04/29/25) Trochanteric bursitis, left hip (04/29/25) Strain of muscle, fascia and tendon of left hip, initial encounter (04/29/25) Physical Therapy Treatment Note PT OP: Lower Back/Lower Extremity Start: 03/24/25 08:15 Freq: Status: Active Protocol: Document 04/29/25 14:24 [facility] (Rec: 04/29/25 15:49 [facility] [id number]) Out-Patient Physical Therapy Visit Information Visit Information Visit Type Treatment Note Visit Note Visit [email or web address]: [email or web address] Visit Start Time 14:33 Visit Stop Time 15:17 Visit Number 5 Number of EXECUTIVE DIRECTOR OF NURSING Visits 1 Progress Note Due 05/26/25 OP-PT Subjective Patient Comments Patient Comments Patient reports he is doing the exercise, and they are helping, got a massage yesterday. Patient rates pain 5ish /10 low back start of session. Therapeutic Exercises Supine Exercises breathing from diaphgragm Supine Exercise Name HEP Reps/Minutes 3 min stretches Supine Exercise Name 1.piriformis, 2.Mod Bharathi HEP Side bilateral Reps/Minutes 60 sec each LE each ex Comments verbal cues Standing Exercises glute med isometric Standing Exercise HEP Name Reps/Minutes one min each LE X 1 Comments Verbal and visual cues Manual Therapy Treatment Soft Tissue Mobilization illiopsoas Mobilization Type Cross-Friction,Rolling Intensity/Depth Moderate Body Position Hooklying glutes Body Location L piriformis Mobilization Type Cross-Friction,Rolling Intensity/Depth Moderate Body Position Prone Manual Techniques MET for R AI L PI Comments and pubic shot gun 6 X 6, Pt instructed 6 X 6 sec for MET R AI L PI, but performed one full minute Physical Therapy Assessment Goals sleep Longterm Goal (LTG) Pt will be able to sleep on sides w/o hip or leg pain 92-improved since injection LTG Duration 06/22 activity Short Term Goal (STG Pt will be able to do stairs w/o inc pain ) 92-better since injection STG Duration 05/09 Account Advisor Goal (LTG) Pt will be able to return to hiking, gym workouts without increased pain. 92-slowly returning LTG Duration 06/22 strength Short Term Goal (STG Pt will be indep w/HEP for self relief of pain ) STG Duration achieved advancing as able Account Advisor Goal (LTG) Pt will score at least 3/5 BLE LPM and at least 4+/5 on all BLE MMT to show improved strength so pt has dec pain w/activities. 04/26-improved LTG Duration 06/22 Assessment Summary Assessment Patient reports feeling sore post manual and stretches, no pain post glute med activation, comments this will get me through the night. Physical Therapy Plan Frequency and Duration Frequency of 2x/Week Treatment Duration of 12 treatment (weeks) Plan of Care Start 03/24/25 Date Plan of Care End 06/22/25 Date Next Visit Focus/Plan Next Note Type Treatment Note Next Visit Plan give core exercises, squats, gentle hip strengthening, manual to innominate, lumbar and hips next session focus on core, squat with band, hip extension
--- NOTE | 2025-05-13 17:24 | PT.OTN ---
Current Diagnoses Calcific tendinitis, left thigh (05/13/25) Trochanteric bursitis, left hip (05/13/25) Strain of muscle, fascia and tendon of left hip, initial encounter (05/13/25) Physical Therapy Treatment Note PT OP: Lower Back/Lower Extremity Start: 03/24/25 08:15 Freq: Status: Active Protocol: Document 05/13/25 16:16 AB (Rec: 05/13/25 17:24 AB [id number]) Out-Patient Physical Therapy Visit Information Visit Information Visit Type Treatment Note Visit Note Visit [email or web address] Visit Start Time 16:18 Visit Stop Time 17:07 Visit Number 6 Number of TACTICAL AIR CONTROL PARTY Visits 1 Progress Note Due 05/26/25 OP-PT Subjective Patient Comments Patient Comments Patient reports he has been better. Patient reports feet are really giving him better L>R. Back is stiff. LEft foot with great toe to wall with knee to wall prior to heel off floor and L LE with decreased hip PROM hip IR compared to R. Therapeutic Exercises Supine Exercises stretches Supine Exercise Name 1.piriformis ( seated today), 2.Mod Bharathi HEP Side left Reps/Minutes 60 sec each LE each ex Comments verbal cues Sitting Exercises Figure 4 stretch Side bilateral Reps/Minutes 60 sec each LE Comments verbal cues Standing Exercises self TC mob Side left Resistance level 5 band Reps/Minutes X 10 Comments verbal cues Calf stretches Standing Exercise gastroc to HEP only to HEP and soleus standing at wall Name Reps/Minutes 60 sec X1 gastroc, unable soleus Comments verbal and visual cues step ups Side right Reps/Minutes 15.5 inch step X 3 patient request to demo Comments Pt ed to use lower step at gym, femoral IR ennd range on step up Manual Therapy Treatment Consent Patient gave verbal Yes consent for manual treatment Soft Tissue Mobilization illiopsoas Body Location L Mobilization Type Cross-Friction,Rolling Intensity/Depth Moderate Body Position Hooklying glutes Body Location L piriformis Mobilization Type Cross-Friction,Rolling Intensity/Depth Moderate Body Position Prone Joint Mobilizations MWM TC mob Direction AP Grade IV Body Position Standing Reps/Duration X 10 X 3 Manual Techniques L hip Type contract relax into hip IR Reps/Duration 60 sec MET for R AI L PI Comments and pubic shot gun 6 X 6, Pt instructed 6 X 6 sec for MET R AI L PI, but performed one full minute Physical Therapy Assessment Goals sleep Government Professor Goal (LTG) Pt will be able to sleep on sides w/o hip or leg pain 04/26-improved since injection LTG Duration 06/22 activity Short Term Goal (STG Pt will be able to do stairs w/o inc pain ) 2-better since injection STG Duration 05/09 Jail Goal (LTG) Pt will be able to return to hiking, gym workouts without increased pain. 04/26-slowly returning LTG Duration 06/22 strength Short Term Goal (STG Pt will be indep w/HEP for self relief of pain ) STG Duration achieved advancing as able Government Professor Goal (LTG) Pt will score at least 3/5 BLE LPM and at least 4+/5 on all BLE MMT to show improved strength so pt has dec pain w/activities. 04/26-improved LTG Duration 06/22 Assessment Summary Assessment Patient unable to perform Soleus stretch L LE pre or post MWM TC mobs. Decreased DF during squats noted during session. Physical Therapy Plan Frequency and Duration Frequency of 2x/Week Treatment Duration of 12 treatment (weeks) Plan of Care Start 03/24/25 Date Plan of Care End 06/22/25 Date Next Visit Focus/Plan Next Note Type Treatment Note Next Visit Plan give core exercises, squats, gentle hip strengthening, manual to innominate, lumbar and hips next session focus on core, squat with band, hip extension. Sidelying hip abduction to HEP
--- NOTE | 2025-05-13 17:31 | PT.OTN ---
Current Diagnoses Calcific tendinitis, left thigh (05/13/25) Trochanteric bursitis, left hip (05/13/25) Strain of muscle, fascia and tendon of left hip, initial encounter (05/13/25) Physical Therapy Treatment Note PT OP: Lower Back/Lower Extremity Start: 03/24/25 08:15 Freq: Status: Active Protocol: Document 05/13/25 16:16 AB (Rec: 05/13/25 17:24 AB [id number]) Out-Patient Physical Therapy Visit Information Visit Information Visit Type Treatment Note Visit Note Visit [email or web address] Visit Start Time 16:18 Visit Stop Time 17:07 Visit Number 6 Number of BEAM RACKER Visits 1 Progress Note Due 05/26/25 OP-PT Subjective Patient Comments Patient Comments Patient reports he has been better. Patient reports feet are really giving him better L>R. Back is stiff. LEft foot with great toe to wall with knee to wall prior to heel off floor and L LE with decreased hip PROM hip IR compared to R. Therapeutic Exercises Supine Exercises stretches Supine Exercise Name 1.piriformis ( seated today), 2.Mod Bharathi HEP Side left Reps/Minutes 60 sec each LE each ex Comments verbal cues Sitting Exercises Figure 4 stretch Side bilateral Reps/Minutes 60 sec each LE Comments verbal cues Standing Exercises self TC mob Side left Resistance level 5 band Reps/Minutes X 10 Comments verbal cues Calf stretches Standing Exercise gastroc to HEP only to HEP and soleus standing at wall Name Reps/Minutes 60 sec X1 gastroc, unable soleus Comments verbal and visual cues step ups Side right Reps/Minutes 15.5 inch step X 3 patient request to demo Comments Pt ed to use lower step at gym, femoral IR ennd range on step up Manual Therapy Treatment Consent Patient gave verbal Yes consent for manual treatment Soft Tissue Mobilization illiopsoas Body Location L Mobilization Type Cross-Friction,Rolling Intensity/Depth Moderate Body Position Hooklying glutes Body Location L piriformis Mobilization Type Cross-Friction,Rolling Intensity/Depth Moderate Body Position Prone Joint Mobilizations MWM TC mob Direction AP Grade IV Body Position Standing Reps/Duration X 10 X 3 Manual Techniques L hip Type contract relax into hip IR Reps/Duration 60 sec MET for R AI L PI Comments and pubic shot gun 6 X 6, Pt instructed 6 X 6 sec for MET R AI L PI, but performed one full minute Physical Therapy Assessment Goals sleep Senior Facilities Manager Goal (LTG) Pt will be able to sleep on sides w/o hip or leg pain 04/26-improved since injection LTG Duration 06/22 activity Short Term Goal (STG Pt will be able to do stairs w/o inc pain ) 2-better since injection STG Duration 05/09 Shelter Goal (LTG) Pt will be able to return to hiking, gym workouts without increased pain. 04/26-slowly returning LTG Duration 06/22 strength Short Term Goal (STG Pt will be indep w/HEP for self relief of pain ) STG Duration achieved advancing as able Senior Facilities Manager Goal (LTG) Pt will score at least 3/5 BLE LPM and at least 4+/5 on all BLE MMT to show improved strength so pt has dec pain w/activities. 04/26-improved LTG Duration 06/22 Assessment Summary Assessment Patient unable to perform Soleus stretch L LE pre or post MWM TC mobs. Decreased DF during squats noted during session. Physical Therapy Plan Frequency and Duration Frequency of 2x/Week Treatment Duration of 12 treatment (weeks) Plan of Care Start 03/24/25 Date Plan of Care End 06/22/25 Date Next Visit Focus/Plan Next Note Type Treatment Note Next Visit Plan give core exercises, squats, gentle hip strengthening, manual to innominate, lumbar and hips next session focus on core, squat with band, hip extension. Sidelying hip abduction to HEP
--- NOTE | 2025-06-21 07:57 | PT.OPPOC ---
Physical, Occupational & Speech Therapy At [facility] Current Diagnoses Calcific tendinitis, left thigh (06/21/25) Trochanteric bursitis, left hip (06/21/25) Strain of muscle, fascia and tendon of left hip, initial encounter (06/21/25) Visit Care Team Role Provider Type Dexter Balbuena MD Family Provider Physician Primary Care Provider Specialty: Family Practice Obstetrics Address: [facility] [place], [address] Email: [email or web address] Ene Kearns MD Attending Provider Physician Referring Provider Specialty: Orthopedics Orthopedic Surgery Address: , [place], [address] Email: Plan Of Care PT OP: Lower Back/Lower Extremity Start: 03/24/25 08:15 Freq: Status: Active Protocol: Document 06/21/25 07:30 [facility] (Rec: 06/21/25 07:57 [facility] [id number]) Out-Patient Physical Therapy Visit Information Visit Information Visit Type Progress Note Visit Note Visit [email or web address] Visit Start Time 07:38 Visit Stop Time 07:49 Visit Number 7 Number of SET UP MECHANIC HEADING MACHINES Visits 0 Progress Note Due 07/21/25 Posture Evaluation Gilbert Postural Classification System Gilbert Postural Posterior/Anterior Classifications Lumbar Protective 2 Mechanism Left AP Lumbar Protective 2 Mechanism Right AP Lumbar Protective 2 Mechanism Left PA Lumbar Protective 3 Mechanism Right PA Hip Strength Hip Manual Muscle Testing Right Flexion (L2) 5 Normal Extension (S1) 5 Normal Abduction 5 Normal Adduction 5 Normal External Rotation 5 Normal Internal Rotation 5 Normal Left Flexion (L2) 5 Normal Extension (S1) 5 Normal Abduction 4 Good Adduction 5 Normal External Rotation 5 Normal Internal Rotation 5 Normal Knee Strength Knee Manual Muscle Testing Right Flexion (S2) 5 Normal Extension (L3) 5 Normal Left Flexion (S2) 5 Normal Extension (L3) 5 Normal Therapeutic Exercises Supine Exercises core Side bilateral Reps/Minutes 20 sec x2 Comments DL w/DF cues Manual Therapy Treatment Consent Patient gave verbal Yes consent for manual treatment Soft Tissue Mobilization ITB Body Location TFL L Comments w/IR Physical Therapy Assessment Goals sleep Halfway Goal (LTG) Pt will be able to sleep on sides w/o hip or leg pain 9/2-improved since injection' 06/21-tightness when laying on R in L hip and pain laying on L LTG Duration 09/13 activity Short Term Goal (STG Pt will be able to do stairs w/o inc pain ) 9/2-better since injection STG Duration achieved 06/21 Mixing Tank Operator Goal (LTG) Pt will be able to return to hiking, gym workouts without increased pain. 92-slowly returning 06/21-pt has started kickboxing, is wt lifting but for endurance vs power, and has hiked but occ pain in L hip especially large step ups LTG Duration 09/13 strength Short Term Goal (STG Pt will be indep w/HEP for self relief of pain ) STG Duration achieved advancing as able Mixing Tank Operator Goal (LTG) Pt will score at least 3/5 BLE LPM and at least 4+/5 on all BLE MMT to show improved strength so pt has dec pain w/activities. 92-improved 06/21-dec core and glute med L strength LTG Duration 09/13 Assessment Summary Assessment Pt has not been seen for over a month d/t vacations and difficult work schedule. He is overall doing well and has been compliant w/exercises and is returning to activity. He has cont glute med L and core weakness likely affecting symptoms. He would benefit from cont skilled PT to address deficits. Physical Therapy Plan Frequency and Duration Frequency of 1-2x/Week Treatment Duration of 12 treatment (weeks) Plan of Care Start 06/21/25 Date Plan of Care End 09/19/25 Date Therapeutic Interventions Therapeutic Balance Training,Gait Training,Home Exercise Program, Interventions Joint Mobilizations,Manual Therapy,Neuromuscular Re- education,Patient/Caregiver Education,Self-Care/Home Management,Soft Tissue Mobilization,Taping,Therapeutic Activities,Therapeutic Exercises Modalities Cold Pack/Ice Massage,Electric Stimulation,Hot Packs Next Visit Focus/Plan Next Note Type Treatment Note Next Visit Plan focus core, glute med work, flexibility for IR and add, manual to improve this, SL squats Plan of Care Dates Plan of Care Start Date 06/21/25 Plan of Care End Date 09/19/25 Electronically Signed by: Adelita Hernandez, PT 06/21/25 [id number] If you are in agreement with this Plan of Care, please return a signed and dated copy. I have reviewed this Plan of Care and certify that the skilled therapy services above are required to meet the patient?s needs. Physician Signature Date Printed Name and Credentials Clinical Instructor Signature Printed Name and Credentials
--- NOTE | 2025-06-21 09:05 | PT.OTN ---
Current Diagnoses Calcific tendinitis, left thigh (06/21/25) Trochanteric bursitis, left hip (06/21/25) Strain of muscle, fascia and tendon of left hip, initial encounter (06/21/25) Physical Therapy Treatment Note PT OP: Lower Back/Lower Extremity Start: 03/24/25 08:15 Freq: Status: Active Protocol: Document 06/21/25 07:50 AB (Rec: 06/21/25 08:41 AB [id number]) Out-Patient Physical Therapy Visit Information Visit Information Visit Type Treatment Note Visit Note Visit [email or web address] Access Code: [email or web address] 7:31-7:37 then 7:50 to 8 :16 Visit Start Time 07:50 Visit Stop Time 08:16 Visit Number 7 Number of UROGYNECOLOGY PHYSICIAN Visits 2 Progress Note Due 05/26/25 OP-PT Subjective Patient Comments Patient Comments Patient reports the hip is better, pain with sleep bothered a couple of times. Patient reports return to [employer] helped. Patient reports he cannot lie on the left side without pain. Patient reports pain is in the hip no longer shooting down the leg. Therapeutic Exercises Supine Exercises core Supine Exercise Name 2. abd bracing with LE ext HEP Side bilateral Reps/Minutes X 10 Comments Verbal cues stretches Supine Exercise Name 1.piriformis ( HEP), 2.Mod Bharathi HEP Side left Reps/Minutes 60 sec Bharathi with AROM knee flexion Comments verbal cues Sidelying Exercises hip abd Sidelying Exercise hip abd B, clamshell and reverse clamshell L only Name Equipment Used HEP all Reps/Minutes X 15 each LE with back to wall abd w/o band X 15 clam and reverse clam Comments Verbal cues also abd with leve one band X 15 Manual Therapy Treatment Soft Tissue Mobilization ITB Body Location L hip joint and slightly ant to and ITB Mobilization Type Instrument Assisted Intensity/Depth Moderate Body Position Hooklying Comments without and with AROM hip IR and contract relax with one min hold X 2 Joint Mobilizations hip Joint med to lat Direction L hip Grade IV Body Position Hooklying Reps/Duration X 10 X 4 Physical Therapy Assessment Goals sleep Hat Presser Goal (LTG) Pt will be able to sleep on sides w/o hip or leg pain /-improved since injection LTG Duration 06/22 activity Short Term Goal (STG Pt will be able to do stairs w/o inc pain ) 04/26-better since injection STG Duration 05/09 Hat Presser Goal (LTG) Pt will be able to return to hiking, gym workouts without increased pain. 04/26-slowly returning LTG Duration 06/22 strength Short Term Goal (STG Pt will be indep w/HEP for self relief of pain ) STG Duration achieved advancing as able Fpc Goal (LTG) Pt will score at least 3/5 BLE LPM and at least 4+/5 on all BLE MMT to show improved strength so pt has dec pain w/activities. 04/26-improved LTG Duration 06/22 Assessment Summary Assessment Patient reports he feels it, but he likes it referring to sidelying hip abd with band. Physical Therapy Plan Frequency and Duration Frequency of 2x/Week Treatment Duration of 12 treatment (weeks) Plan of Care Start 06/21/25 Date Plan of Care End 09/19/25 Date Therapeutic Interventions Therapeutic Balance Training,Gait Training,Home Exercise Program, Interventions Joint Mobilizations,Manual Therapy,Neuromuscular Re- education,Patient/Caregiver Education,Self-Care/Home Management,Soft Tissue Mobilization,Taping,Therapeutic Activities,Therapeutic Exercises Modalities Cold Pack/Ice Massage,Electric Stimulation,Hot Packs Next Visit Focus/Plan Next Note Type Treatment Note Next Visit Plan give core exercises, squats, gentle hip strengthening, manual to innominate, lumbar and hips next session focus on core, squat with band, hip extension. assess korina to HEP progression last session. [ End ]
--- NOTE | 2025-08-22 08:52 | PT.OPDS ---
Current Diagnoses Calcific tendinitis, left thigh (06/21/25) Trochanteric bursitis, left hip (06/21/25) Strain of muscle, fascia and tendon of left hip, initial encounter (06/21/25) Visit Care Team Role Provider Type Dexter Balbuena MD Family Provider Physician Primary Care Provider Specialty: Family Practice Obstetrics Address: [address] [place], [address] Email: [email or web address] Ene Kearns MD Attending Provider Physician Referring Provider Specialty: Orthopedics Orthopedic Surgery Address: [address] , [place], [address] Email: Visit Number Visit Number 7 Discharge Summary PT OP: Lower Back/Lower Extremity Start: 03/24/25 08:15 Freq: Status: Active Protocol: Document 08/22/25 08:50 [facility] (Rec: 08/22/25 08:51 [facility] [id number]) Out-Patient Physical Therapy Visit Information Visit Information Visit Type Discharge Summary Physical Therapy Assessment Goals sleep Custodial Goal (LTG) Pt will be able to sleep on sides w/o hip or leg pain 9/2-improved since injection LTG Duration 06/22 activity Short Term Goal (STG Pt will be able to do stairs w/o inc pain ) 92-better since injection STG Duration 05/09 Transit Proof Machine Operator Goal (LTG) Pt will be able to return to hiking, gym workouts without increased pain. 92-slowly returning LTG Duration 06/22 strength Short Term Goal (STG Pt will be indep w/HEP for self relief of pain ) STG Duration achieved advancing as able Transit Proof Machine Operator Goal (LTG) Pt will score at least 3/5 BLE LPM and at least 4+/5 on all BLE MMT to show improved strength so pt has dec pain w/activities. 92-improved LTG Duration 06/22 Assessment Summary Assessment Pt cancelled last scheduled visits (4) and did not reschedule. Was making good progress w/overall dec pain and improving exercise/activity tolerance. D/t no longer attending PT Physical Therapy Plan Discharge Physical Therapy Discharge Reasons No Longer Attending PT
== END 2025-08-23 09:34 | disposition home or self-care (01) ==
LOC: PHYS 07:30
PROVIDERS: Family Provider Family Medicine; PCP Family Medicine; Referring Provider Orthopaedic Surgery; Visit Provider Orthopaedic Surgery
DX: M65.252 Calcific tendinitis, left thigh (principal); M70.62 Trochanteric bursitis, left hip; S76.012D Strain of muscle, fascia and tendon of left hip, subsequent encounter
CPT/HCPCS: 97110; 97140; 97162; 97535